=== PATIENT | male | born 1955 | race Caucasian/White ===

== ENCOUNTER 2020-03-26 01:04 | Emergency (ER) | payer BC ==
[2020-03-26] MEDS ORDERED: LORazepam 0.5 MG Tab PO ONE (01:29)
[2020-03-26] MEDS ORDERED: HYDROmorphone 1 MG/ML Syringe IM ONE (01:29)
[2020-03-26] MEDS ORDERED: predniSONE 20 MG Tab PO ONE (01:29)
--- NOTE | 2020-03-26 01:34 | EDM.PDOC ---
ED HPI GENERAL MEDICAL PROBLEM - General Chief Complaint: Back Pain or Injury Stated Complaint: BACK PAIN THAT GOES INTO RIGHT LEG Time Seen by Provider: 03/26/20 01:19 Source of Information: Reports: Patient, RN Notes Reviewed - History of Present Illness INITIAL COMMENTS - FREE TEXT/NARRATIVE: 64 yr old male with onset of low back pain 3 days ago. Became much worse today, not letting up or going away. Pain is in his low back radiating down R leg. No abd pain, nausea, vomiting, fever or chills. Difficult to find a position of comfort. Right Lower Back Pain Score (Numeric/FACES): 6 - Related Data Allergies Allergy/AdvReac Type Severity Reaction Status Date / Time meperidine [From Demerol] AdvReac Severe Vomiting Verified 03/26/20 01:16 Home Meds: Home Meds Acetaminophen/HYDROcodone [[place] 325-5 MG] 1 tab PO Q4H PRN #20 tablet 03/26/20 [Rx] Naproxen Sodium [Aleve] 220 mg PO BID PRN 03/26/20 [History] predniSONE [Prednisone] 50 mg PO DAILY #6 tablet 03/26/20 [Rx] Past Medical History - Past Surgical History GI Surgical History: Reports: Appendectomy Musculoskeletal Surgical History: Reports: Arthroscopic Knee Social & Family History - Tobacco Use Tobacco Use Status *Q: Current Every Day Tobacco User Years of Tobacco use: 30 Packs/Tins Daily: 1 - Caffeine Use Caffeine Use: Reports: Coffee - Recreational Drug Use Recreational Drug Use: No ED ROS GENERAL - Review of Systems Review Of Systems: See Below Constitutional: Denies: Fever, Chills HEENT: Reports: No Symptoms Respiratory: Reports: No Symptoms Cardiovascular: Reports: No Symptoms GI/Abdominal: Denies: Abdominal Pain, Nausea, Vomiting Musculoskeletal: Reports: Back Pain Skin: Denies: Rash Neurological: Reports: Numbness (mild, RLE). Denies: Weakness ED EXAM,LOWER BACK PAIN/INJURY - Physical Exam Exam: See Below General Appearance: Alert, Moderate Distress Head: Atraumatic Neck: Supple Respiratory/Chest: No Respiratory Distress Back Exam: Paraspinal Tenderness (R low back) Extremities: No: Pedal Edema, Increased Warmth, Redness Neurological: Alert, No Motor/Sensory Deficits, Oriented x 3 Skin Exam: Warm, Dry, Normal Color Course - Vital Signs Last Recorded V/S: Last Vital Signs Temp 96.8 F L 03/26/20 01:13 Pulse 84 03/26/20 01:13 Resp 16 03/26/20 01:13 BP 172/83 H 03/26/20 01:13 Pulse Ox 97 03/26/20 01:13 - Orders/Labs/Meds Meds: Medications Discontinued Medications Generic Name Dose Route Start Last Admin Trade Name Hillary PRN Reason Stop Dose Admin Hydromorphone HCl 1 mg 03/26/20 01:29 03/26/20 01:35 Dilaudid IM 03/26/20 01:30 1 mg ONETIME ONE Administration Lorazepam 0.5 mg 03/26/20 01:29 03/26/20 01:34 Ativan PO 03/26/20 01:30 0.5 mg ONETIME ONE Administration Prednisone 40 mg 03/26/20 01:29 03/26/20 01:34 Prednisone PO 03/26/20 01:30 40 mg ONETIME ONE Administration Departure - Departure Time of Disposition: 00:55 Disposition: Home, Self-Care 01 Condition: Fair Clinical Impression: Back pain Qualifiers: Back pain location: low back pain Chronicity: acute Back pain laterality: right Sciatica presence: with sciatica Sciatica laterality: sciatica of right side Qualified Code(s): M54.41 - Lumbago with sciatica, right side - Discharge Information Referrals: Anatoly Quevedo MD [Primary Care Provider] - Forms: ED Department Discharge Additional Instructions: Alternate ice and heat R low back as needed. Prednisone 50 mg q AM starting this morning for 6 days. Tylenol for mild to moderate pain or hydrocodone if needed for severe pain. [facility]. Do not drive when taking hydrocodone. Take a stool softner when taking hydrocodone as that will tend to make you constipated. You may see your chiropractor as needed. See your regular provider for follow up early next week. If this does not get better quite rapidly MRI will be the imaging study of choice. Sepsis Event Note (ED) - Evaluation Sepsis Screening Result: No Definite Risk - Focused Exam Vital Signs: Vital Signs Temp Pulse Resp BP Pulse Ox 03/26/20 01:13 96.8 F L 84 16 172/83 H 97
== END 2020-03-26 02:00 | disposition home or self-care (01) ==
LOC: JD.ED 01:04
DX: M54.41 Lumbago with sciatica, right side (principal); Z88.5 Allergy status to narcotic agent; Z79.899 Other long term (current) drug therapy
CPT/HCPCS: 96372; 99283; A9270; J1170; J7512